=== PATIENT | male | born 1985 | race Caucasian/White ===

== ENCOUNTER 2023-11-08 21:44 | Emergency (ER) | payer MEDICARE ==
[~2023-11-08] VITALS: Ht 180.3 cm; Wt 86.2 kg
[2023-11-08] MEDS ORDERED: Ketorolac Tromethamine 15mg Vial IM ONE (22:45)
[2023-11-08] MEDS ORDERED: HYDROcodone 5-APAP 325 TAB PO ONE (22:45)
[2023-11-08] MEDS ORDERED: RX Prepack 6 Tabs Oxycodone 5mg UD ONE (23:40)
== END 2023-11-08 23:57 | disposition home or self-care (01) ==
LOC: ER 21:44
DX: S86.111A Strain of other muscle(s) and tendon(s) of posterior muscle group at lower leg level, right leg, initial encounter (principal); X50.1XXA Overexertion from prolonged static or awkward postures, initial encounter; G40.909 Epilepsy, unspecified, not intractable, without status epilepticus; Z79.899 Other long term (current) drug therapy
CPT/HCPCS: 76882; 96372; 99283-25; A9270; J1885

== ENCOUNTER 2023-11-11 12:52 | Emergency (ER) | payer MEDICARE ==
[~2023-11-11] VITALS: Ht 180.3 cm; Wt 86.2 kg
[2023-11-11] MEDS ORDERED: Ketorolac Tromethamine 30mg Vial IM ONE (13:55)
[2023-11-11] MEDS ORDERED: OXAYDO5 M2 PO (14:11)
== END 2023-11-11 14:17 | disposition home or self-care (01) ==
LOC: ER 12:52
DX: S86.111A Strain of other muscle(s) and tendon(s) of posterior muscle group at lower leg level, right leg, initial encounter (principal); X50.0XXA Overexertion from strenuous movement or load, initial encounter
CPT/HCPCS: 96372; 99283-25; J1885

== ENCOUNTER 2024-04-26 00:18 | Emergency (ER) | payer MEDICARE ==
[~2024-04-26] VITALS: Ht 180.3 cm; Wt 95.2 kg
[~2024-04-26 00:18] MED LIST: OXAYDO5 M2 PO
[2024-04-26] MEDS ORDERED: LEVE500 PO (01:05)
[2024-04-26 01:06] LABS: BASOPHILS ABSOLUTE AUTO 0.06 K/mm3 (0.00-0.23); BASOPHILS PERCENT AUTO 1 % (0-2); EOSINOPHILS ABSOLUTE AUTO 0.12 K/mm3 (0.00-0.68); EOSINOPHILS PERCENT AUTO 1 % (0-6); Hematocrit 46.7 % (37.0-53.0); Hemoglobin 17.2 g/dL (13.5-17.5); IMMATURE GRAN ABSOLUTE AUTO 0.04 K/mm3 (0.00-0.10); IMMATURE GRAN PERCENT AUTO 0 % (0-1); LYMPHOCYTES ABSOLUTE AUTO 3.27 K/mm3 (0.84-5.20); LYMPHOCYTES PERCENT AUTO 25 % (21-46); MONOCYTES ABSOLUTE AUTO 0.75 K/mm3 (0.16-1.47); MONOCYTES PERCENT AUTO 6 % (4-13); Mean Corpuscular HGB 32.9 pg (26.0-34.0); Mean Corpuscular HGB Conc 36.8 g/dL (31.5-36.5); Mean Corpuscular Volume 89 fL (80-100); NEUTROPHILS PERCENT AUTO 67 % (41-73); Platelet Count 229 K/mm3 (150-400); RDW Coefficient Variation 11.7 % (11.7-14.2); RDW Standard Deviation 37.8 fL (35.1-46.3); Red Blood Cell Count 5.23 M/mm3 (4.30-5.90); White Blood Cell Count 13.04 K/mm3 (4.00-11.30)
[2024-04-26 01:22] LABS: International Normalized Ratio 0.94; Prothrombin Time Results 10.1 Sec (9.7-11.5)
[2024-04-26 01:26] LABS: Albumin, Blood 4.3 g/dL (3.4-5.0); Albumin/Globulin Ratio 1.3 (0.8-1.8); Bilirubin, Total 0.4 mg/dL (0.1-1.0); Bun/Creatinine Ratio 15.3 (12.0-20.0); Calcium, Blood 9.4 mg/dL (8.5-10.1); Creatinine, Blood 0.98 mg/dL (0.60-1.20); Globulin, Blood 3.3 g/dL (2.2-4.0); Total Protein, Blood 7.6 g/dL (6.4-8.2)
[2024-04-26] MEDS ORDERED: Diphth,Pertuss(Acell),Tet Vac 0.5 ML VIAL IM ONE (01:50)
[2024-04-26] MEDS ORDERED: NS 1,000 ML IV SCH (01:50)
[2024-04-26] MEDS ORDERED: Metoclopramide HCl 5MG / ML 2ML Vial IV ONE (01:50)
[2024-04-26] MEDS ORDERED: Ketorolac Tromethamine 30mg Vial IV ONE (01:50)
== END 2024-04-26 03:17 | disposition home or self-care (01) ==
LOC: ER 00:18
PROVIDERS: Student in an Organized Health Care Education/Training Program
DX: S02.2XXA Fracture of nasal bones, initial encounter for closed fracture (principal); S01.111A Laceration without foreign body of right eyelid and periocular area, initial encounter; S01.81XA Laceration without foreign body of other part of head, initial encounter; F10.129 Alcohol abuse with intoxication, unspecified; Y09 Assault by unspecified means; Z79.899 Other long term (current) drug therapy
CPT/HCPCS: 12011; 70450; 70486; 72125; 80053; 80320; 85025; 85610; 85730; 90471; 90715; 93005; 93010; 96374-59; 96375-59; 99284-25; J1885; J2765; J7030

== ENCOUNTER 2024-08-20 15:34 | Emergency (ER) | payer MEDICARE ==
[~2024-08-20] VITALS: Ht 180.3 cm; Wt 95.2 kg
[~2024-08-20 15:34] MED LIST changes: +LEVE500 PO
[2024-08-20] MEDS ORDERED: Ketorolac Tromethamine 30mg Vial IM ONE (16:50)
[2024-08-20] MEDS ORDERED: HYDROcodone 5-APAP 325 TAB PO ONE (19:05)
[2024-08-20] MEDS ORDERED: HYDR1TAB94 PO (19:06)
== END 2024-08-20 19:20 | disposition home or self-care (01) ==
LOC: ER 15:34
DX: S82.141A Displaced bicondylar fracture of right tibia, initial encounter for closed fracture (principal); M25.562 Pain in left knee; Z88.8 Allergy status to other drugs, medicaments and biological substances; V00.131A Fall from skateboard, initial encounter
CPT/HCPCS: 73562-RT; 73700; 96372-59; 99283-25; A9270; J1885

== ENCOUNTER 2025-03-17 09:19 | Emergency (ER) | payer OTHER ==
[~2025-03-17] VITALS: Ht 180.3 cm; Wt 99.8 kg
[~2025-03-17 09:19] MED LIST changes: +HYDR1TAB94 PO
[2025-03-17] MEDS ORDERED: HYDR1TAB94 PO (11:31)
== END 2025-03-17 11:34 | disposition home or self-care (01) ==
LOC: ER 09:19
DX: S40.012A Contusion of left shoulder, initial encounter (principal); V00.131A Fall from skateboard, initial encounter
CPT/HCPCS: 73030; 99283-25

== ENCOUNTER 2025-03-19 10:04 | Emergency (ER) | payer OTHER ==
[~2025-03-19] VITALS: Ht 180.3 cm; Wt 102.1 kg
[2025-03-19] MEDS ORDERED: LIDO700A20 TOP (11:21)
[2025-03-19] MEDS ORDERED: CYCL10 PO (11:21)
== END 2025-03-19 11:25 | disposition home or self-care (01) ==
LOC: ER 10:04
DX: S49.92XA Unspecified injury of left shoulder and upper arm, initial encounter (principal); Z79.899 Other long term (current) drug therapy; V00.131A Fall from skateboard, initial encounter; Y93.51 Activity, roller skating (inline) and skateboarding
CPT/HCPCS: 99283